=== PATIENT | female | born 1965 | race Caucasian/White ===

== ENCOUNTER 2016-12-02 18:09 | Observation (INO) | payer OTHER ==
[~2016-12-02] VITALS: Ht 167.6 cm; Wt 58.2 kg
[2016-12-02] VITALS (7 sets, daily range): BP systolic 132–163; BP diastolic 83–93; PULSE 62–90; RESP 16–18; TEMP 98.7; O2SAT 97–100
[~2016-12-02 18:09] MED LIST: MOTR200T PO
[2016-12-02 18:42] LABS: BLOOD, URINE NEG (NEG); GLUCOSE,URINE NEG (NEG); KETONE, URINE 15 mg/dL (NEG); NITRITE,URINE NEG (NEG)
[2016-12-02 18:48] LABS: URINE COLOR YELLOW (YELLW/STRAW)
[2016-12-02 18:49] LABS: WBC, URINE 0-2 /hpf (0-5)
[2016-12-02 18:50] LABS: COMMENT (UR) CULT NOT INDICATED; CULTURE IF INDICATED CULT NOT INDICATED; SQUAMOUS EPITHELIAL CELL URINE 0-5 /hpf (0-5)
[2016-12-02] MEDS ORDERED: ONDANSETRON HCL 4 MG/2 ML VIAL IVP ONE (19:30)
[2016-12-02] MEDS ORDERED: SODIUM CHLORIDE 0.9% FLUSH 10 ML FLUSH IV FLUSH PRN (19:30)
[2016-12-02] MEDS ORDERED: MORPHINE SULFATE 4 MG/ML INJ IV PUSH ONE ×2 (19:30→21:00)
[2016-12-02] MEDS: SODIUM CHLOR 0.9% 1000 ML INJ 1,000 ML IV SCH ×2 (19:52→21:28)
--- NOTE | 2016-12-02 19:54 | RADHPO ---
EXAM DATE/TIME: 12/02/2016 19:33 [facility] COMPARISON: No previous studies available for comparison. INDICATIONS : Chest and back pain. MEDICAL HISTORY : None. SURGICAL HISTORY : None. ENCOUNTER: Initial ACUITY: 1 day PAIN SCORE: 10/10 LOCATION: Bilateral chest FINDINGS: A single view of the chest demonstrates the lungs to be symmetrically aerated without evidence of mas s, infiltrate or effusion. The cardiomediastinal contours are unremarkable. Osseous structures are intact. CONCLUSION: No evidence of acute cardiopulmonary disease. Sushil Reynolds MD on December 02, 2016 at 19:52 Board Certified Radiologist. This report was verified electronically.
[2016-12-02 20:17] LABS: AUTOMATED NEUTROPHIL # 3.8 TH/MM3 (1.8-7.7); BASOPHIL # 0.1 TH/MM3 (0-0.2); BASOPHIL % 1.1 % (0.0-2.0); EOSINOPHIL % 0.7 % (0.0-4.0); HEMATOCRIT 39.3 % (35.0-46.0); HEMO FLAGS DIFF FINAL; LYMPH % 25.6 % (9.0-44.0); LYMPHOCYTE # 1.4 TH/MM3 (1.0-4.8); MEAN CELL VOLUME 88.9 FL (80.0-100.0); MEAN CORPUSCULAR HEMOGLOBIN 30.3 PG (27.0-34.0); MEAN CORPUSCULAR HGB CONC 34.1 % (32.0-36.0); NEUT % 66.6 % (16.0-70.0); PLATELET COUNT 161 TH/MM3 (150-450); RED BLOOD COUNT 4.42 MIL/MM3 (4.00-5.30); RED CELL DISTRIBUTION WIDTH 11.6 % (11.6-17.2); WHITE BLOOD COUNT 5.6 TH/MM3 (4.0-11.0)
[2016-12-02 20:24] LABS: CHLORIDE 101 MEQ/L (98-107); POTASSIUM 3.6 MEQ/L (3.5-5.1); SODIUM (NA) 139 MEQ/L (136-145)
[2016-12-02 20:28] LABS: ANION GAP 8 MEQ/L (5-15); BICARBONATE 30.1 MEQ/L (21.0-32.0); BLOOD UREA NITROGEN 10 MG/DL (7-18)
[2016-12-02 20:30] LABS: ALT (GPT) 19 U/L (10-53); AST (GOT) 14 U/L (15-37); GLOMERULAR FILTRATION RATE 78 ML/MIN (>89)
[2016-12-02 20:32] LABS: TOTAL BILIRUBIN ADULT 0.9 MG/DL (0.2-1.0)
[2016-12-02 20:33] LABS: ALKALINE PHOSPHATASE 38 U/L (45-117)
--- NOTE | 2016-12-02 20:34 | PD ---
HPI Chief Complaint: Flank/Kidney Pain Time Seen by Provider: 19:30 Travel History International Travel<30 days: Yes Contact w/Intl Traveler<30days: Yes Name of Country Traveled to: [facility] Traveled to known affect area: No History of Present Illness HPI 51-year-old female presents to the emergency department for complaint of severe left flank pain radiating to the epigastrium sudden onset since 1 PM today. Patient has mild nausea without vomiting. Patient states she feels bloated. Patient states she took Gas-X with minimal relief. Patient takes no medication except for as needed albuterol. Patient does not smoke cigarettes. Patient notes to alcohol use on a occasional basis. No prior history of abdominal pain. Patient denies any chronic medical conditions. He should rates pain 9/ 10 in intensity. Patient denies dysuria frequency urgency or hematuria. Patient has left greater than right flank pain. He should is unable to identify exacerbating or alleviating factors. Patient is unable to identify position of comfort. Patient denies chest pain or shortness of breath. Patient 's had no fever or chills. Patient denies any injury or fall. 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 Some episodes of shortness of breath but denies pleuritic chest pain or shortness of breath at this time. PFSH Past Medical History Narrative Medical Born without uterus, recent bronchitis; EMG C7-8 radiculopathy; alcohol use; nursing notes reviewed Medical History: Denies Significant Hx Diminished Hearing: No Medical other: Yes (RAI) ?: Not : 0 Past Surgical History Other Surgery: Yes (Breast augmentation) Social History Alcohol Use: Yes (2-3 glasses of wine on weekend) Tobacco Use: No Substance Use: No Allergies-Medications (Allergen,Severity, Reaction): Coded Allergies: No Known Allergies (Unverified , 12/02/16) Reported Meds & Prescriptions Reported Meds & Active Scripts Active Reported Ventolin Hfa 18 GM Inh (Albuterol Sulfate) 90 Mcg/Act Aer 2 Puff INH Q4-6H PRN Narrative Medication Albuterol, Gas-X Review of Systems Except as stated in HPI: all other systems reviewed are Neg General / Constitutional: No: Fever, Chills HENT: No: Headaches Cardiovascular: No: Chest Pain or Discomfort Respiratory: No: Shortness of Breath Gastrointestinal: Positive: Nausea, Abdominal Pain Genitourinary: Positive: Flank Pain Musculoskeletal: No: Myalgias, Arthralgias, Edema, Pain Skin: No Rash Neurologic: No: Weakness Psychiatric: Positive: Anxiety Hematologic/Lymphatic: No: Easy Bruising Physical Exam Narrative GENERAL: Well-developed well-nourished female in obvious discomfort pacing around the room holding her left flank SKIN: Warm and dry. HEAD: Normocephalic. EYES: No scleral icterus. No injection or drainage. NECK: Supple, trachea midline. No JVD or lymphadenopathy. CARDIOVASCULAR: Regular rate and rhythm without murmurs, gallops, or rubs. RESPIRATORY: Breath sounds equal bilaterally. No accessory muscle use. GASTROINTESTINAL: Abdomen soft, diffusely tender to palpation with reproducible epigastric tenderness without guarding or rebound, nondistended. MUSCULOSKELETAL: No cyanosis, or edema. BACK: Nontender without obvious deformity. Left-sided flank/CVA tenderness. Data Data Last Documented VS Vital Signs Date Time Temp Pulse Resp B/P Pulse Ox O2 Delivery O2 Flow Rate FiO2 12/02/16 22:30 18 12/02/16 22:25 74 137/90 97 Room Air 12/02/16 18:29 98.7 Orders Urinalysis - C+S If Indicated (12/02/16 18:16) Complete Blood Count With Diff (12/02/16 19:30) Comprehensive Metabolic Panel (12/02/16 19:30) Lipase (12/02/16 19:30) Ct Abd/Pel W Iv Contrast(Rout) (12/02/16 19:30) Iv Access Insert/Monitor (12/02/16 19:30) Ecg Monitoring (12/02/16 19:30) Oximetry (12/02/16 19:30) Morphine Inj (Morphine Inj) (12/02/16 19:30) Ondansetron Inj (Zofran Inj) (12/02/16 19:30) Sodium Chlor 0.9% 1000 Ml Inj (Ns 1000 M (12/02/16 19:30) Sodium Chloride 0.9% Flush (Ns Flush) (12/02/16 19:30) Electrocardiogram (12/02/16 19:30) Chest, Single Ap (12/02/16 19:30) D-Dimer (12/02/16 20:34) Morphine Inj (Morphine Inj) (12/02/16 21:00) Ketorolac Inj (Toradol Inj) (12/02/16 21:00) Pantoprazole Inj (Protonix Inj) (12/02/16 21:00) Iohexol 350 Inj (Omnipaque 350 Inj) (12/02/16 22:12) Us Abdomen Gallbladder (12/02/16 ) Us Pelvis Comp W Dop Transvag (12/02/16 ) Morphine Inj (Morphine Inj) (12/03/16 00:45) Labs Laboratory Tests Test 12/02/16 12/02/16 12/02/16 18:32 19:50 20:40 Urine Color YELLOW Urine Turbidity CLEAR Urine pH 7.0 Urine Specific [place] 1.019 Urine Protein NEG mg/dL Urine Glucose (UA) NEG mg/dL Urine Ketones 15 mg/dL Urine Occult Blood NEG Urine Nitrite NEG Urine Bilirubin NEG Urine Leukocyte Esterase NEG Urine WBC 0-2 /hpf Urine Squamous Epithelial 0-5 /hpf Cells Microscopic Urinalysis Comment CULT NOT INDICATED White Blood Count 5.6 TH/MM3 Red Blood Count 4.42 MIL/MM3 Hemoglobin 13.4 GM/DL Hematocrit 39.3 % Mean Corpuscular Volume 88.9 FL Mean Corpuscular Hemoglobin 30.3 PG Mean Corpuscular Hemoglobin 34.1 % Concent Red Cell Distribution Width 11.6 % Platelet Count 161 TH/MM3 Mean Platelet Volume 10.0 FL Neutrophils (%) (Auto) 66.6 % Lymphocytes (%) (Auto) 25.6 % Monocytes (%) (Auto) 6.0 % Eosinophils (%) (Auto) 0.7 % Basophils (%) (Auto) 1.1 % Neutrophils # (Auto) 3.8 TH/MM3 Lymphocytes # (Auto) 1.4 TH/MM3 Monocytes # (Auto) 0.3 TH/MM3 Eosinophils # (Auto) 0.0 TH/MM3 Basophils # (Auto) 0.1 TH/MM3 CBC Comment DIFF FINAL Differential Comment Sodium Level 139 MEQ/L Potassium Level 3.6 MEQ/L Chloride Level 101 MEQ/L Carbon Dioxide Level 30.1 MEQ/L Anion Gap 8 MEQ/L Blood Urea Nitrogen 10 MG/DL Creatinine 0.78 MG/DL Estimat Glomerular Filtration 78 ML/MIN Rate Random Glucose 85 MG/DL Calcium Level 9.5 MG/DL Total Bilirubin 0.9 MG/DL Aspartate Amino Transf 14 U/L (AST/SGOT) Alanine Aminotransferase 19 U/L (ALT/SGPT) Alkaline Phosphatase 38 U/L Total Protein 7.3 GM/DL Albumin 4.1 GM/DL Lipase 213 U/L D-Dimer Quantitative (PE/DVT) LESS THAN 0.19 MG/L FEU MDM Medical Decision Making Medical Screen Exam Complete: Yes Emergency Medical Condition: Yes Medical Record Reviewed: Yes Interpretation(s) d-dimer: less than 0.19, not elevated EKG normal sinus rhythm rate [address] elevation injury pattern or ectopy noted Vital Signs Date Time Temp Pulse Resp B/P Pulse Ox O2 Delivery O2 Flow Rate FiO2 12/02/16 20:00 17 12/02/16 20:00 80 18 163/93 100 Room Air 12/02/16 19:10 90 18 136/90 100 Room Air 12/02/16 18:29 98.7 76 18 132/83 100 CBC & BMP Diagram 12/02/16 19:50 Differential Diagnosis Flank pain, pancreatitis, peptic ulcer disease, perforated viscus, biliary colic , atypical chest pain, ACS, PE, musculoskeletal pain, shingles Narrative Course Well-developed thin female in obvious discomfort pacing about the exam room with reproductive possible epigastric tenderness and left flank tenderness to percussion; patient placed on monitor IV access obtained EKG performed which reveals sinus rhythm rate of [address] elevation or injury pattern change noted; patient administered normal saline along with Zofran 4 mg IV and morphine sulfate 3 mg IV; CT abdomen and pelvis imaging study order It is 8:33 PM CBC is automated differential values normal range; complete metabolic panel with lipase eyes in normal range and urinalysis shows no acute abnormality. D-dimer is less than 0.19 this is not an elevated value; patient requesting additional medicine for abdominal and flank pain; no further complaint of pleuritic pain; morphine 3 mg IV administered; CT remains pending CT resulted and concerning for some nonspecific intrahepatic and extrahepatic ductal dilatation along with common bile duct being upper limit of normal at 7 mm. Patient on re-exam has no right upper quadrant tenderness no guarding or rebound and no clinical [place] sign. Patient does continue to have left flank pain that is reproducible with palpation and percussion as well as epigastric pain has moved to the suprapubic infraumbilical area that reproduces pain of presentation. Patient otherwise at rest without palpation reports her pain is 0 /[address] findings discussed with reading radiologist with recommendation for GB ultrasound in the emergency department which has been ordered in view however of patient's suprapubic and midline lower abdominal pain /infraumbilical pain patient does have bilateral ovaries intact although does not have anatomical uterus and has small vaginal wall well obtain ultrasound with Doppler to assess for ovarian torsion. Should these findings fall in normal range with normal blood flow to ovaries no acute pelvic finding and no evidence for common duct stone plan will be to have patient follow up as an outpatient regarding nonspecific intra-and extrahepatic ductal dilatation however if patient has recurrent intractable pain will admit for pain management. Pelvic ultrasound reveals no acute abnormality; ultrasound gallbladder reveals no liver or gallbladder ductal dilatation; after ultrasound patient reporting recurrent severe flank pain again radiating towards the pelvis at this point time symptoms seem to be more consistent with musculoskeletal pain additional morphine administered have her pain is not relieved. Patient has no neurologic deficit on exam and again no saddle anesthesia or bladder or bowel dysfunction. Patient states she lives alone and does not have access to someone who can stay with her and assist her. Will place call to hospitalist service for observation admission for recurrent intractable pain. Physician Communication Physician Communication call placed to [facility] Diagnosis Primary Impression: Intractable pain Admitting Information Admitting Physician Requests: Observation Simi Bravo MD Dec 02, 2016 20:34
[2016-12-02] MEDS ORDERED: VENTAER INH (20:48)
[2016-12-02] MEDS ORDERED: KETOROLAC TROMETHAMINE 30 MG/ML (IVP) VIAL IV PUSH ONE (21:00)
[2016-12-02] MEDS ORDERED: PANTOPRAZOLE SODIUM 40 MG VIAL IV PUSH ONE (21:00)
[2016-12-02] MEDS ORDERED: IOHEXOL 350 MG/ML 10 ML VIAL (for RAD DIAG) IV ONE (22:12)
--- NOTE | 2016-12-02 22:23 | RADHPO ---
EXAM DATE/TIME: 12/02/2016 21:59 [facility] COMPARISON: No previous studies available for comparison. INDICATIONS : Left flank pain. IV CONTRAST: 80 cc Omnipaque 350 (iohexol) IV ORAL CONTRAST: No oral contrast ingested. RADIATION DOSE: 6.68 CTDIvol (mGy) MEDICAL HISTORY : None SURGICAL HISTORY : None. ENCOUNTER: Initial ACUITY: 1 day PAIN SCALE: 5/10 LOCATION: Left flank TECHNIQUE: Volumetric scanning of the abdomen and pelvis was performed. Using automated exposure control and ad justment of the mA and/or kV according to patient size, radiation dose was kept as low as reasonably achievable to obtain optimal diagnostic quality images. FINDINGS: LOWER LUNGS: The visualized lower lungs are clear. LIVER: 2.2 x 2.9 cm low density lesion seen in the right hepatic lobe adjacent to the IVC. There is mild int rahepatic and nectar hepatic biliary distention, etiology uncertain. I don't clearly see a gallstone or ductal stone. Common bile duct is approximately 7 mm. SPLEEN: Normal size without lesion. PANCREAS: Within normal limits. KIDNEYS: Left kidney is located within the pelvic cavity. Right kidney is normally positioned, has some cortic al thinning/scarring laterally. No hydronephrosis demonstrated. ADRENAL GLANDS: Within normal limits. VASCULAR: There is no aortic aneurysm. BOWEL/MESENTERY: The stomach, small bowel, and colon demonstrate no acute abnormality. There is no free intraperitone al air or fluid. ABDOMINAL WALL: Within normal limits. RETROPERITONEUM: There is no lymphadenopathy. BLADDER: No wall thickening or mass. REPRODUCTIVE: Within normal limits. INGUINAL: There is no lymphadenopathy or hernia. MUSCULOSKELETAL: Within normal limits for patient age. CONCLUSION: 1. Pelvic kidney on the left but does not appear obstructed or with other acute abnormality. 2. Mild chronic-appearing cortical thinning/scarring of the right kidney. 3. Mild intrahepatic and extrahepatic biliary prominence, etiology and significance uncertain. Please correlate with any laboratory evidence of biliary obstruction. Nonemergent MRCP suggested if felt cl inically indicated. 4. There is a low-density lesion in the liver noted, not a cyst but statistically still likely benign such as a hemangioma. Sushil Reynolds MD on December 02, 2016 at 22:14 Board Certified Radiologist. This report was verified electronically.
[2016-12-03] VITALS (8 sets, daily range): BP systolic 117–162; BP diastolic 80–93; PULSE 63–75; RESP 16–19; TEMP 97.3–98.4; O2SAT 95–100
[2016-12-03] MEDS ORDERED: MORPHINE SULFATE 4 MG/ML INJ IV PUSH ONE (00:45)
--- NOTE | 2016-12-03 00:54 | RADHPO ---
EXAM DATE/TIME: 12/02/2016 23:38 [facility] COMPARISON: CT ABDOMEN & PELVIS W CONTRAST, December 02, 2016, 21:59. INDICATIONS : Biliary tree dilation seen on CT. MEDICAL HISTORY : Bronchitis. 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 Left pelvic kidney. SURGICAL HISTORY : Breast augmentation. ENCOUNTER: Initial ACUITY: 1 day PAIN SCORE: 10/10 LOCATION: Right upper quadrant MEASUREMENTS: LIVER: 14.6 cm length COMMON DUCT: 5 mm RIGHT KIDNEY: 9.7 x 5.7 x 4.0 cm FINDINGS: LIVER: Normal echotexture without ductal dilatation. There is a focal homogeneous hyperechoic mass in the ri ght lobe of the liver measuring 3.3 x 2.3 cm. This is most likely a hemangioma. The portal system is patent. There is no evidence of ascites. COMMON DUCT: No intraluminal mass or stone visualized. GALLBLADDER: Contains no stones, demonstrates no wall thickening or pericholecystic fluid. PANCREAS: The visualized portions are within normal limits. There is some prominence of the pancreatic duct at 4 mm. This is noted in the recent CT scan of the abdomen. RIGHT KIDNEY: No evidence of hydronephrosis, stone, or mass. CONCLUSION: 1. No evidence of gallstones or biliary tract obstruction. No significant ductal dilatation is seen o n the ultrasound. 2. Single focal hyperechoic mass right lobe liver measuring 3.3 cm suggestive of a hemangioma. This c orrelates with the recent CT scan of the abdomen. 3. Mild prominence of the pancreatic duct of 4 mm. Otherwise the pancreas is grossly unremarkable. Moy Villalta MD on December 03, 2016 at 0:48 Board Certified Radiologist. This report was verified electronically.
--- NOTE | 2016-12-03 01:01 | RADHPO ---
EXAM DATE/TIME: 12/02/2016 23:59 [facility] COMPARISON: No previous studies available for comparison. INDICATIONS : Pelvic pain. MEDICAL HISTORY : Bronchitis. 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 Left pelvic kidney. SURGICAL HISTORY : Breast augmentation. ENCOUNTER: Initial ACUITY: 1 day PAIN SCORE: 10/10 LOCATION: Bilateral pelvis MEASUREMENTS: RIGHT OVARY: 2.7 x 2.2 x 1.6 cm UTERUS: Absent by defect LEFT OVARY: 4.0 x 3.4 x 2.8 cm FINDINGS: UTERUS: Agenesis of the uterus. Patient does have a left pelvic kidney. RIGHT OVARY: Ovary contains no mass or significant cystic lesion.Good blood flow LEFT OVARY: Ovary contains no mass or significant cystic lesion. Good blood flow MISCELLANEOUS: No free fluid. CONCLUSION: 1. Agenesis of the uterus. 2. The ovaries are unremarkable. Moy Villalta MD on December 03, 2016 at 0:58 Board Certified Radiologist. This report was verified electronically.
[2016-12-03] MEDS ORDERED: DEXAMETHASONE SOD PHOS 4 MG/ML VIAL IV PUSH ONE (01:30)
[2016-12-03] MEDS ORDERED: HYDROmorphone HCL PF 1 MG/ML VIAL IV PUSH ONE (01:30)
[2016-12-03] MEDS ORDERED: NALOXONE HCL 0.4 MG/ML AMP IV PRN (01:45)
[2016-12-03] MEDS ORDERED: ONDANSETRON HCL 4 MG/2 ML VIAL IVP PRN (01:45)
[2016-12-03] MEDS ORDERED: SODIUM CHLORIDE 0.9% FLUSH 10 ML FLUSH IV FLUSH PRN (01:45)
[2016-12-03] MEDS ORDERED: SODIUM CHLORIDE 0.9% FLUSH 10 ML FLUSH IVF PRN (02:00)
[2016-12-03] MEDS: MORPHINE SULFATE 4 MG/ML INJ IV PUSH PRN ×2 (02:34→11:41)
--- NOTE | 2016-12-03 08:27 | HHI.HP ---
[facility] Service [facility] Primary Care Physician Non-Staff Admission Diagnosis intractable pain/L flank pain Diagnoses: (1) Musculoskeletal pain (2) Intractable pain Chief Complaint: Left sided flank pain Travel History International Travel<30 Days: Yes Contact w/Intl Traveler <30 Da: Yes Name of Country Traveled to: [facility] Traveled to Known Affected Are: No History of Present Illness 51-year-old female with no significant medical history presented to the ED last night for evaluation of acute onset of left flank pain with radiation to her epigastrium associated with nausea without any emesis. Patient denies any trauma prior to the onset of the pain which started around 1PM yesterday and was rated at the time 9/10 in intensity. She denies any urinary frequency or dysuria. 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 She reported some shortness of breath without any pleuritic chest pain. CT abdomen/pelvis as well as gallbladder ultrasound in the ED did not reveal any acute finding. UA was negative and CBC as well as CMP were unremarkable. On Admission patient has stable vitals. During my exam, patient has complete resolution of symptoms Review of Systems Other 12 systems reviewed and are negative except for the ones mentioned in history of present illness Past Family Social History Past Medical History Born without uterus, recent bronchitis; EMG C7-8 radiculopathy; alcohol use Medical History: Denies Significant Hx Medical other: Yes (RAI) Past Surgical History Breast augmentation Reported Medications Ventolin Hfa 18 GM Inh (Albuterol Sulfate) 90 Mcg/Act Aer 2 Puff INH Q4-6H PRN Albuterol, Gas-X Allergies: Coded Allergies: No Known Allergies (Unverified , 12/02/16) Family History Denies any family history of heart disease, hypertension Social History Alcohol Use: Yes (2-3 glasses of wine on weekend) Tobacco Use: No Substance Use: No Physical Exam Vital Signs Vital Signs Date Time Temp Pulse Resp B/P Pulse Ox O2 Delivery O2 Flow Rate FiO2 4/27/17 04:03 75 12/03/16 03:30 97.3 63 16 143/86 95 12/03/16 02:41 18 12/03/16 02:39 99 21 12/03/16 02:20 98.4 75 18 141/85 97 Room Air 12/03/16 01:15 66 18 162/93 100 Room Air 12/03/16 00:52 72 19 154/80 97 Room Air 12/02/16 23:50 62 18 133/86 98 Room Air 12/02/16 22:30 18 12/02/16 22:25 74 17 137/90 97 Room Air 12/02/16 21:20 18 12/02/16 21:15 84 16 132/84 100 Room Air 12/02/16 20:00 17 12/02/16 20:00 80 18 163/93 100 Room Air 12/02/16 19:10 90 18 136/90 100 Room Air 12/02/16 19:05 90 18 136/90 99 Room Air 12/02/16 18:29 98.7 76 18 132/83 100 Physical Exam GENERAL: This is a well-nourished, well-developed patient, in no apparent distress. SKIN: No rashes, ecchymoses or lesions. Cool and dry. HEAD: Atraumatic. Normocephalic. No temporal or scalp tenderness. EYES: Pupils equal round and reactive. Extraocular motions intact. No scleral icterus. No injection or drainage. ENT: Nose without bleeding, purulent drainage or septal hematoma. Throat without erythema, tonsillar hypertrophy or exudate. Uvula midline. Airway patent. NECK: Trachea midline. No JVD or lymphadenopathy. Supple, nontender, no meningeal signs. CARDIOVASCULAR: Regular rate and rhythm without murmurs, gallops, or rubs. RESPIRATORY: Clear to auscultation. Breath sounds equal bilaterally. No wheezes , rales, or rhonchi. GASTROINTESTINAL: Abdomen soft, non-tender, nondistended. No hepato-splenomegaly , or palpable masses. No guarding. MUSCULOSKELETAL: Extremities without clubbing, cyanosis, or edema. No joint tenderness, effusion, or edema noted. No calf tenderness. Negative Homans sign bilaterally. NEUROLOGICAL: Awake and alert. Cranial nerves II through XII intact. Motor and sensory grossly within normal limits. Five out of 5 muscle strength in all muscle groups. Normal speech. Laboratory Laboratory Tests Test 12/02/16 12/02/16 12/02/16 18:32 19:50 20:40 Urine Color YELLOW Urine Turbidity CLEAR Urine pH 7.0 Urine Specific [place] 1.019 Urine Protein NEG Urine Glucose (UA) NEG Urine Ketones 15 Urine Occult Blood NEG Urine Nitrite NEG Urine Bilirubin NEG Urine Leukocyte Esterase NEG Urine WBC 0-2 Urine Squamous Epithelial 0-5 Cells Microscopic Urinalysis Comment CULT NOT INDICATED White Blood Count 5.6 Red Blood Count 4.42 Hemoglobin 13.4 Hematocrit 39.3 Mean Corpuscular Volume 88.9 Mean Corpuscular Hemoglobin 30.3 Mean Corpuscular Hemoglobin 34.1 Concent Red Cell Distribution Width 11.6 Platelet Count 161 Mean Platelet Volume 10.0 Neutrophils (%) (Auto) 66.6 Lymphocytes (%) (Auto) 25.6 Monocytes (%) (Auto) 6.0 Eosinophils (%) (Auto) 0.7 Basophils (%) (Auto) 1.1 Neutrophils # (Auto) 3.8 Lymphocytes # (Auto) 1.4 Monocytes # (Auto) 0.3 Eosinophils # (Auto) 0.0 Basophils # (Auto) 0.1 CBC Comment DIFF FINAL Differential Comment Sodium Level 139 Potassium Level 3.6 Chloride Level 101 Carbon Dioxide Level 30.1 Anion Gap 8 Blood Urea Nitrogen 10 Creatinine 0.78 Estimat Glomerular Filtration 78 Rate Random Glucose 85 Calcium Level 9.5 Total Bilirubin 0.9 Aspartate Amino Transf 14 (AST/SGOT) Alanine Aminotransferase 19 (ALT/SGPT) Alkaline Phosphatase 38 Total Protein 7.3 Albumin 4.1 Lipase 213 D-Dimer Quantitative (PE/DVT) LESS THAN 0.19 Result Diagram: 12/02/16 1950 12/02/161949 Imaging Last Impressions Chest X-Ray 12/02/161929 Signed Impressions: Service Date/Time: Friday, December 02, 2016 19:33 - CONCLUSION: No evidence of acute cardiopulmonary disease. Sushil Reynolds MD Abdomen/Pelvis CT 12/02/161929 Signed Impressions: Service Date/Time: Friday, December 02, 2016 21:59 - CONCLUSION: 1. Pelvic kidney on the left but does not appear obstructed or with other acute abnormality. 2. Mild chronic-appearing cortical thinning/scarring of the right kidney. 3. Mild intrahepatic and extrahepatic biliary prominence, etiology and significance uncertain. Please correlate with any laboratory evidence of biliary obstruction. Nonemergent MRCP suggested if felt clinically indicated. 4. There is a low-density lesion in the liver noted, not a cyst but statistically still likely benign such as a hemangioma. Sushil Reynolds MD Gall Bladder Ultrasound 12/02/16 0000 Signed Impressions: Service Date/Time: Friday, December 02, 2016 23:38 - CONCLUSION: 1. No evidence of gallstones or biliary tract obstruction. No significant ductal dilatation is seen on the ultrasound. 2. Single focal hyperechoic mass right lobe liver measuring 3.3 cm suggestive of a hemangioma. This correlates with the recent CT scan of the abdomen. 3. Mild prominence of the pancreatic duct of 4 mm. Otherwise the pancreas is grossly unremarkable. Moy Villalta MD Abdomen/Pelvis/Transvag US 12/02/16 0000 Signed Impressions: Service Date/Time: Friday, December 02, 2016 23:59 - CONCLUSION: 1. Agenesis of the uterus. 2. The ovaries are unremarkable. Moy Villalta MD Assessment and Plan Problem List: (1) Musculoskeletal pain ICD Code: M79.1 Status: Acute (2) Intractable pain ICD Code: R52 Status: Acute Assessment and Plan 51 yrs with Musculoskeletal pain-resolved -UA negative -Abdomen CT/pelvics noted and reviewed by me with finding of Pelvic kidney on the left but does not appear obstructed or with other acute abnormality -Gallbladder ultrasound noted and reviewed by me with finding No evidence of gallstones or biliary tract obstruction. No significant ductal dilatation is seen on the ultrasound. 2. Single focal hyperechoic mass right lobe liver measuring 3.3 cm suggestive of a hemangioma Conservative treatment muscle relaxant when necessary Patient condition improved therefore she'll be discharged home DVT prophylaxis: SCDs Code Status Full code Discussed Condition With Patient Gianluca Sands MD Dec 03, 2016 08:27
[2016-12-03] MEDS ORDERED: SODIUM CHLORIDE 0.9% FLUSH 10 ML FLUSH IV FLUSH SCH ×2 (09:00)
[2016-12-03] MEDS ORDERED: NEUR100C PO (09:33)
[2016-12-03] MEDS ORDERED: CYCL5TAB PO (09:33)
[2016-12-03] MEDS ORDERED: [UNRECOGNIZED DRUG - CODE] PO (10:11)
[2016-12-03] MEDS ORDERED: KETOROLAC TROMETHAMINE 30 MG/ML (IVP) VIAL IV PUSH ONE (10:15)
--- NOTE | 2016-12-03 10:57 | HHI.PR ---
Addendum to Inpatient Note Addendum Reason: Additional Documentation Additional Information Discharge patient to home Condition on discharge: Improved Regular Diet as tolerated Ad Valorie activity Rx written: Ultram Neurontin Flexeril Follow-up with primary care physician in one week Gianluca Sands MD Dec 03, 2016 10:57
[2016-12-03] MEDS ORDERED: GABAPENTIN 100 MG CAP PO ONE (15:00)
[2016-12-03] MEDS ORDERED: PILL SPLITTER OTHER PRN (15:00)
[2016-12-03] MEDS ORDERED: CYCLOBENZAPRINE HCL 10 MG TAB PO ONE (15:00)
--- NOTE | 2016-12-07 08:19 | EKG ---
Date Performed: 12/02/2016 Time Performed: 19:41:24 PTAGE: 51 years EKG: Sinus rhythm Normal ECG NO PREVIOUS TRACING DOCTOR: Cristofer Solis Interpretating Date/Time 12/07/2016 08:16:21
== END 2016-12-03 16:00 | disposition home or self-care (01) ==
LOC: PHED 18:09 → PHEDA 12-03 01:48 → PH3A 12-03 03:05
PROVIDERS: ADMIT Hospitalist; ATTEND Hospitalist
DX: M79.1 Myalgia (principal); R52 Pain, unspecified; R16.0 Hepatomegaly, not elsewhere classified
CPT/HCPCS: 71010; 74177; 76705; 76830; 76856; 80053; 81001; 83690; 85025; 85379; 93005; 93975; 96361; 96374; 96375; 96376; 99285; C9113; G0378; J1100; J1885; J2270; J2405; J7030; Q9967